=== PATIENT | female | born 1990 | race African-American/Black ===

== ENCOUNTER 2018-03-01 14:10 | Emergency (ER) | payer OTHER ==
[~2018-03-01] VITALS: Ht 162.6 cm; Wt 63.0 kg
[2018-03-01 14:30] VITALS: BP 122/87
== END 2018-03-01 17:38 | disposition home or self-care (01) ==
LOC: ER 14:15
DX: S60.211A Contusion of right wrist, initial encounter (principal); W20.8XXA Other cause of strike by thrown, projected or falling object, initial encounter; Y93.89 Activity, other specified; Y92.89 Other specified places as the place of occurrence of the external cause; Y99.8 Other external cause status
CPT/HCPCS: 73110; 73130; 99284; A4565

== ENCOUNTER → 2018-03-08 | Outpatient (CLI) | payer BC ==
[2018-03-08 13:05] LABS: BASOPHILS % 0.6 % (0.0-2.0); EOSINOPHILS % 2.6 % (0.0-5.0); HEMATOCRIT. 35.1 % (36.0-48.0); HEMOGLOBIN. 11.5 g/dL (12.0-16.0); LYMPHOCYTES % 42.6 % (20.0-50.0); MEAN CORPUSCULAR HEMOGLOBIN 26.2 pg (28.0-32.0); MEAN CORPUSCULAR VOLUME 79.9 fL (81.0-99.0); MEAN PLATELET VOLUME 7.4 fl (7.4-10.4); MONOCYTES % 5.6 % (2.0-8.0); NEUTROPHILS % 48.6 % (40.0-76.0); PLATELET 309 x1000/uL (130-400); RED BLOOD CELL COUNT 4.39 mill/uL (4.2-5.4); RED CELL DISTRIBUTION WIDTH 14.4 % (11.6-14.6)
[2018-03-08 13:14] LABS: CHLORIDE 106 mEq/L (98-107)
[2018-03-08 13:22] LABS: BETA HYDROXYBUTYRATE 0.1 mMol/L (0.0-0.3)
== END | disposition home or self-care (01) ==
LOC: LAB 12:34
PROVIDERS: ATTEND Internal Medicine
DX: Z00.01 Encounter for general adult medical examination with abnormal findings (principal); E28.2 Polycystic ovarian syndrome; R79.89 Other specified abnormal findings of blood chemistry
CPT/HCPCS: 36415; 80053; 82010; 82306; 83036; 84443; 85025

== ENCOUNTER → 2019-01-23 | Outpatient (CLI) | payer BC ==
[2019-01-23 16:57] LABS: CLARITY URINE CLEAR (CLEAR); COLOR URINE YELLOW (YELLOW); KETONES URINE NEGATIVE (NEGATIVE); LEUKOCYTE ESTERASE URINE NEGATIVE (NEGATIVE); NITRITE URINE NEGATIVE (NEGATIVE); OCCULT BLOOD URINE NEGATIVE (NEGATIVE); PROTEIN URINE NEGATIVE (NEGATIVE); UROBILINOGEN URINE 0.2 E.U./dL (0.2-1.0)
[2019-01-23 16:58] LABS: BASOPHILS % 0.5 % (0.0-2.0); HEMATOCRIT. 37.7 % (36.0-48.0); HEMOGLOBIN. 12.6 g/dL (12.0-16.0); LYMPHOCYTES % 39.5 % (20.0-50.0); MEAN CORPUSCULAR HEMOGLOBIN 27.2 pg (28.0-32.0); MEAN CORPUSCULAR VOLUME 81.3 fL (81.0-99.0); MEAN PLATELET VOLUME 7.3 fl (7.4-10.4); MONOCYTES % 6.2 % (2.0-8.0); NEUTROPHILS % 52.8 % (40.0-76.0); PLATELET 278 x1000/uL (130-400); RED BLOOD CELL COUNT 4.64 mill/uL (4.2-5.4)
[2019-01-23 17:08] LABS: PARTIAL THROMBOPLASTIN TIME 25.6 sec (23.4-31.0); PROTHROMBIN TIME 10.5 sec (9.1-11.1)
== END | disposition home or self-care (01) ==
LOC: OR 16:22
PROVIDERS: ATTEND Pediatrics
DX: Z01.818 Encounter for other preprocedural examination (principal)
CPT/HCPCS: 36415; 82565; 82947; 84520

== ENCOUNTER → 2019-05-21 | Outpatient (CLI) | payer BC | END | disposition home or self-care (01) | LOC: US 10:03 | PROVIDERS: ATTEND Internal Medicine | DX: N64.4 Mastodynia (principal) | CPT/HCPCS: 76641 ==

== ENCOUNTER → 2019-09-16 | Outpatient (CLI) | payer SELFPAY ==
[2019-09-18 06:10] LABS: HBSAG SCREEN Negative (Negative); HIV SCREEN 4G Non Reactive (Non Reactive)
== END | disposition home or self-care (01) ==
LOC: LAB 16:10
PROVIDERS: ATTEND Internal Medicine
DX: Z00.00 Encounter for general adult medical examination without abnormal findings (principal)
CPT/HCPCS: 86592; 87340; 87389; 87491